=== PATIENT | male | born 1935 | race Caucasian/White ===

== ENCOUNTER 2016-08-16 15:06 | Emergency (ER) | payer OTHER ==
[~2016-08-16] VITALS: Ht 167.6 cm; Wt 91.2 kg
[~2016-08-16 15:06] MED LIST: ACETAMINOPHEN-1 EAC1 PO; ADULT LOW DOSE81 M1 PO; ADVAIR HFA120 INHALA IH; AMLODIPINE BESY10 MG PO; ASPIR 8181 MG PO; ASPIR-LOW81 MG PO; ASPIR-MOX IB T325 MG PO; ASPIRIN E.C.81 M1 PO; BENADRYL ALLERG25 MG PO; BENADRYL25 MG PO; BENTYL10 MG PO; CELEBREX100 MG PO; CELEBREX200 MG PO; CIPRO500 MG PO; COLACE100 MG PO; CORTISPORIN-TC10 M1 RIGHT EAR; COUMADIN1 MG PO; COUMADIN2 MG PO; COUMADIN2.5 MG PO; COUMADIN3 MG PO; Colace PO; DELTASONE20 M1 PO; DUONEB 2.5-0.5 M3 ML AEROSOL; DUONEB 2.5-0.5 M3 ML IH; FAMOTIDINE20 MG PO; FLAGYL500 MG PO; FLEXERIL10 MG PO; FLONASE16 G1 BOTH NARES; FLORASTOR250 MG PO; FLUTICASONE PRO16 GM BOTH NARES; Folvite PO; GLUCOPHAGE1000 MG PO; IMDUR30 MG PO; IPRATR-ALBUTEROL3 ML IH; ISOSORBIDE DINI30 MG PO; ISOSORBIDE MONO30 MG PO; JANTOVEN2 MG PO; JANTOVEN2.5 MG PO; K-DUR10 ME2 PO; K-DUR20 MEQ PO; KLOR-CON 1010 ME1 PO; KLOR-CON M1010 MEQ PO; KLOR-CON M2020 MEQ PO; LEVAQUIN750 MG PO; LEVOFLOXACIN250 MG PO; LEVOFLOXACIN750 MG PO; LIDODERM 5% P1 PATCH TD; LO-DOSE ASPIRIN81 M1 PO; LOPRESSOR25 MG PO; LORATADINE10 M2 PO; MECLIZINE HCL25 MG PO; METFORMIN HCL1000 MG PO; METOPROLOL SUCC50 MG PO; METRONIDAZOLE500 MG PO; MILK OF MAGNESI10 ML PO; MIRALAX17 GM PO; MYCOSTATIN 100,60 ML PO; NAPROSYN500 MG PO; NAPROXEN500 MG PO; NORVASC10 MG PO; Norvasc PO; Oyst-Cal D, Oscal W/ PO; PANTOPRAZOLE SO40 MG PO; PRAVACHOL20 MG PO; PRAVACHOL40 MG PO; PRAVASTATIN SOD40 MG PO; PREDNISONE10 MG PO; PREDNISONE20 MG PO; PRILOSEC20.6 MG PO; PROAIR HFA8.5 GM IH; PROTONIX40 MG PO; SENOKOT S,PE1 TABLET PO; SPIRIVA1 INHALATI IH; SYMBICORT60 INHALAT IH; TEKTURNA300 MG PO; THERAGRAN1 TABLET PO; THIAMINE,VITAM100 MG PO; TOPROL XL50 MG PO; TRAMADOL HCL50 MG PO; TYLENOL REGULA325 MG PO; TYLENOL WITH C1 EACH PO; Thiamine,Vitamin B1 PO; Tylenol Regular Stre PO; ULTRAM50 MG PO; WARFARIN SODIU2.5 MG PO; WARFARIN SODIUM3 MG PO; XARELTO15 MG PO; XARELTO20 MG PO; ZITHROMAX Z-PA250 MG PO; ZOLOFT100 M1 PO; Zocor PO; oxyCODONE PO
[2016-08-16 15:27] LABS: HEMATOCRIT 42.7 % (38.0-50.0); MCHC 33.7 G/DL (30.0-36.0); MEAN PLAT.VOLUME 9.3 uM^3 (9.0-12.4); PLATELET COUNT 179 K/uL (156-360); RBC DIS.WIDTH-CV 14.4 % (11.8-14.6); RBC DIS.WIDTH-SD 47.2 % (39-53); RED BLOOD COUNT 4.64 M/uL (4.00-5.50); WHITE BLOOD COUNT 6.5 K/uL (4.1-10.2)
[2016-08-16 15:38] LABS: CHLORIDE 104 mEq/L (99-109); POTASSIUM 3.8 mEq/L (3.7-5.4); SODIUM 141 mEq/L (136-147)
[2016-08-16 15:40] LABS: GLUCOSE 135 mg/dL (70-99)
[2016-08-16 15:41] LABS: ANION GAP 10 MEQ/L (2-14)
[2016-08-16 15:43] LABS: GFR ESTIMATE (CALCULATED) > 59 mL/min/
[2016-08-16 15:44] LABS: UREA NITROGEN (BUN) 12 mg/dL (9-23)
[2016-08-16 15:50] LABS: TROP-I INTERPRETATION NEGATIVE; TROPONIN-I 0.02 ng/mL (0.0-0.30)
[2016-08-16] MEDS ORDERED: ANAPROX DS550 M1 PO (17:00)
[2016-08-16 17:38] VITALS: BP 131/81
== END 2016-08-16 17:39 | disposition home or self-care (01) ==
LOC: EME → EDBD 15:06 → EME 17:39
DX: M25.512 Pain in left shoulder (principal); R07.9 Chest pain, unspecified; J44.9 Chronic obstructive pulmonary disease, unspecified; J45.909 Unspecified asthma, uncomplicated; I50.9 Heart failure, unspecified; E11.9 Type 2 diabetes mellitus without complications; E78.5 Hyperlipidemia, unspecified; I10 Essential (primary) hypertension; K21.9 Gastro-esophageal reflux disease without esophagitis; Z86.718 Personal history of other venous thrombosis and embolism; Z79.01 Long term (current) use of anticoagulants; Z99.81 Dependence on supplemental oxygen; Z87.891 Personal history of nicotine dependence
CPT/HCPCS: 71020; 80048; 84484; 85027; 93005; 99281; 99285

== ENCOUNTER 2016-10-23 10:24 | Inpatient (IN) | payer OTHER ==
[~2016-10-23] VITALS: Ht 170.2 cm; Wt 94.5 kg
[~2016-10-23 10:24] MED LIST changes: +ANAPROX DS550 M1 PO
[2016-10-23 11:35] LABS: BASOPHIL COUNT 0.1 K/uL (0-0.1); EOSINOPHIL (%) 3.4 % (0-5); EOSINOPHIL COUNT 0.2 K/uL (0-0.3); IMMATURE GRANULOCYTE (%) 0.3 % (0.0-0.7); INSTRUMENT ABS NEUTROPHIL CT 4.4 K/uL; LYMPHOCYTE COUNT 1.4 K/uL (1.0-2.8); MCH 29.9 PG (29.0-34.0); MCHC 32.3 G/DL (30.0-36.0); MCV 92.3 FL (86-99); MEAN PLAT.VOLUME 9.6 uM^3 (9.0-12.4); MONOCYTE (%) 6.5 % (3-12); MONOCYTE COUNT 0.4 K/uL (0-0.8); NEUTROPHIL (%) 67.1 % (45-76); NEUTROPHIL COUNT 4.4 K/uL (1.8-6.4); PLATELET COUNT 228 K/uL (156-360); RBC DIS.WIDTH-SD 47.6 % (39-53); RED BLOOD COUNT 5.09 M/uL (4.00-5.50); WHITE BLOOD COUNT 6.5 K/uL (4.1-10.2)
[2016-10-23 11:45] LABS: CHLORIDE 100 mEq/L (99-109); SODIUM 138 mEq/L (136-147)
[2016-10-23 11:47] LABS: GLUCOSE 131 mg/dL (70-99)
[2016-10-23 11:49] LABS: ANION GAP 12 MEQ/L (2-14)
[2016-10-23 11:51] LABS: GFR ESTIMATE (CALCULATED) > 59 mL/min/
[2016-10-23 11:52] LABS: INTER. NORMALIZED RATIO 1.1; PROTHROMBIN TIME 10.7 (9.2-11.2); PTT 26.5 (25-32); UREA NITROGEN (BUN) 12 mg/dL (9-23)
[2016-10-23 11:56] LABS: TROP-I INTERPRETATION NEGATIVE; TROPONIN-I < 0.01 ng/mL (0.0-0.30)
[2016-10-23 12:32] LABS: ADD MIUA? YES; BILIRUBIN NEGATIVE; BLOOD SMALL; COLOR YELLOW ((YELLOW)); GLUCOSE (STRIP) NEGATIVE; KETONES NEGATIVE; LEUKOCYTES NEGATIVE; NITRITE NEGATIVE; PROTEIN (STRIP) 30; SPECIFIC GRAVITY 1.015 (1.000-1.030); UROBILINOGEN 0.2 MG/DL (0.2-1.0)
[2016-10-23 12:48] LABS: BACTERIA RARE /HPF; CALCIUM OXALATE CRYSTALS 2+ /HPF; EPITHELIAL CELLS RARE /HPF; HYALINE CASTS 0-5 /LPF; MUCUS TRACE /LPF; UCUL ADDED? NO; WHITE BLOOD CELLS 0-5 /HPF (0-5)
[2016-10-23] MEDS ORDERED: PROAIR HFA8.5 GM IH (16:11)
[2016-10-23] MEDS ORDERED: LOW DOSE ASPIRI81 M1 PO (16:11)
[2016-10-23] MEDS ORDERED: PROVENTIL,2.5 MG/3 M IH (16:12)
[2016-10-23] MEDS ORDERED: ULTRAM50 MG PO (16:13)
[2016-10-23 20:49] LABS: TROP-I INTERPRETATION NEGATIVE; TROPONIN-I < 0.01 ng/mL (0.0-0.30)
[2016-10-23 22:32] VITALS: BP 144/84
[2016-10-24 03:47] VITALS: BP 190/96
[2016-10-24 06:25] LABS: TROP-I INTERPRETATION NEGATIVE; TROPONIN-I < 0.01 ng/mL (0.0-0.30)
[2016-10-24 08:04] LABS: POINT-OF-CARE METER ID UU14162513
[2016-10-24 08:15] VITALS: BP 140/72
[2016-10-24 12:01] VITALS: BP 148/84
[2016-10-24 12:43] LABS: POINT-OF-CARE METER ID UU14162513
[2016-10-24 16:00] VITALS: BP 151/87
[2016-10-24 19:09] VITALS: BP 136/73
[2016-10-24 23:54] VITALS: BP 159/79
[2016-10-25 04:19] VITALS: BP 156/80
[2016-10-25 07:47] VITALS: BP 169/79
[2016-10-25 12:27] VITALS: BP 132/65
[2016-10-25 16:15] VITALS: BP 145/76
[2016-10-25 20:23] VITALS: BP 158/82
[2016-10-25 23:59] VITALS: BP 157/77
[2016-10-26 05:01] VITALS: BP 158/74
[2016-10-26 06:48] LABS: ALKALINE PHOSPHATASE 44 IU/L (3-129); ANION GAP 5 MEQ/L (2-14); CHLORIDE 104 MEQ/L (99-109); GFR ESTIMATE (CALCULATED) > 59 mL/min/; POTASSIUM 3.9 MEQ/L (3.7-5.4); SAMPLE HEMOLYSIS CHECK 0; SAMPLE ICTERIC CHECK 0; SAMPLE LIPEMIA CHECK 0; SODIUM 142 MEQ/L (136-147); TOTAL BILIRUBIN 0.6 MG/DL (0.0-1.0); UREA NITROGEN (BUN) 18 mg/dL (9-23)
[2016-10-26 06:52] LABS: GLUCOSE 91 mg/dL (70-99)
[2016-10-26 06:57] LABS: BASOPHIL COUNT 0.1 K/uL (0-0.1); EOSINOPHIL (%) 0.4 % (0-5); EOSINOPHIL COUNT 0.1 K/uL (0-0.3); HEMATOCRIT 40.5 % (38.0-50.0); IMMATURE GRANULOCYTE (%) 0.4 % (0.0-0.7); INSTRUMENT ABS NEUTROPHIL CT 7.5 K/uL; LYMPHOCYTE COUNT 2.8 K/uL (1.0-2.8); MCH 30.2 PG (29.0-34.0); MCHC 32.6 G/DL (30.0-36.0); MCV 92.7 FL (86-99); MEAN PLAT.VOLUME 10.2 uM^3 (9.0-12.4); MONOCYTE (%) 8.1 % (3-12); MONOCYTE COUNT 0.9 K/uL (0-0.8); NEUTROPHIL (%) 66.4 % (45-76); NEUTROPHIL COUNT 7.5 K/uL (1.8-6.4); PLATELET COUNT 195 K/uL (156-360); RBC DIS.WIDTH-SD 47.8 % (39-53); RED BLOOD COUNT 4.37 M/uL (4.00-5.50)
[2016-10-26 07:05] LABS: WHITE BLOOD COUNT 11.3 K/uL (4.1-10.2)
[2016-10-26 07:39] VITALS: BP 154/82
[2016-10-26 10:11] LABS: C DIFF TOXIN POSITIVE (NEGATIVE)
[2016-10-26 10:12] LABS: PROBE CHECK PASS
[2016-10-26 11:40] VITALS: BP 145/84
[2016-10-26 16:16] VITALS: BP 142/86
[2016-10-26 20:40] VITALS: BP 194/98
[2016-10-27 00:33] VITALS: BP 179/91
[2016-10-27 04:40] VITALS: BP 174/82
[2016-10-27 07:42] VITALS: BP 174/98
[2016-10-27 10:55] VITALS: BP 142/92
[2016-10-27] MEDS ORDERED: VANCOCIN HCL125 MG PO (14:01)
[2016-10-27] MEDS ORDERED: PREDNISONE10 MG PO (14:02)
[2016-10-27 16:35] VITALS: BP 178/104
== END 2016-10-27 17:40 | DRG 191 ==
LOC: EME → EDBD 10:24 → 5WEST 17:03 → EDOF 17:03 → 5WEST 22:17 → 3EAST 10-24 10:06 → 5WEST 10-24 10:06 → 3EAST 10-24 18:09
PROVIDERS: Emergency Medicine; Internal Medicine; Nurse Practitioner Adult Health; Pediatrics
DX: J44.1 Chronic obstructive pulmonary disease with (acute) exacerbation (principal); A04.7 Enterocolitis due to Clostridium difficile; I10 Essential (primary) hypertension; E78.5 Hyperlipidemia, unspecified; Z87.891 Personal history of nicotine dependence; Z99.81 Dependence on supplemental oxygen; R53.1 Weakness; J92.9 Pleural plaque without asbestos; R31.9 Hematuria, unspecified; Z86.718 Personal history of other venous thrombosis and embolism; R19.7 Diarrhea, unspecified; G89.29 Other chronic pain; M54.9 Dorsalgia, unspecified
CPT/HCPCS: 71010; 71020; 74177; 80048; 80053; 81003; 82948; 83880; 84484; 85025; 85610; 85730; 87040; 87493; 93005; 94640; 94640 76; 94760; 94799; 97530 GO; 99202; 99281; 99285; G0378; G8978 GP CJ; G8979 GP CI; G8987 GO CH; G8988 GO CH; J0456; J0696; J1650; J2405; J2930; J7030; J7050; J7512

== ENCOUNTER 2016-12-26 00:43 | Inpatient (IN) | payer OTHER ==
[~2016-12-26] VITALS: Ht 170.2 cm; Wt 90.5 kg
[~2016-12-26 00:43] MED LIST changes: +LOW DOSE ASPIRI81 M1 PO; +PROVENTIL,2.5 MG/3 M IH; +VANCOCIN HCL125 MG PO
[2016-12-26 01:08] LABS: HEMATOCRIT 44.5 % (38.0-50.0); MCH 30.7 PG (29.0-34.0); MCHC 32.8 G/DL (30.0-36.0); MCV 93.7 FL (86-99); MEAN PLAT.VOLUME 9.9 uM^3 (9.0-12.4); PLATELET COUNT 136 K/uL (156-360); RBC DIS.WIDTH-CV 14.6 % (11.8-14.6); RBC DIS.WIDTH-SD 50.9 % (39-53); RED BLOOD COUNT 4.75 M/uL (4.00-5.50); WHITE BLOOD COUNT 13.4 K/uL (4.1-10.2)
[2016-12-26 01:21] LABS: CHLORIDE 106 mEq/L (99-109); POTASSIUM 4.3 mEq/L (3.7-5.4); SODIUM 144 mEq/L (136-147)
[2016-12-26 01:24] LABS: ANION GAP 14 MEQ/L (2-14)
[2016-12-26 01:26] LABS: GFR ESTIMATE (CALCULATED) 41 mL/min/
[2016-12-26 01:27] LABS: UREA NITROGEN (BUN) 23 mg/dL (9-23)
[2016-12-26 01:29] LABS: GLUCOSE 229 mg/dL (70-99)
[2016-12-26 01:33] LABS: TROP-I INTERPRETATION NEGATIVE; TROPONIN-I 0.06 ng/mL (0.0-0.30)
[2016-12-26 02:56] LABS: INTER. NORMALIZED RATIO 1.2; PTT 28.3 (25-32)
[2016-12-26 06:25] VITALS: BP 132/77
[2016-12-26 07:08] LABS: POINT-OF-CARE METER ID UU14149397
[2016-12-26 07:44] VITALS: BP 137/78
[2016-12-26 09:49] LABS: Estimated Average Glucose 148 mg/dL (70-123); HEMOGLOBIN A1c (GLYCOHEMOGLOB) 6.8 % HGB (Below 5.7)
[2016-12-26 09:51] LABS: TROP-I INTERPRETATION NEGATIVE; TROPONIN-I 0.03 ng/mL (0.0-0.30)
[2016-12-26 11:26] LABS: POINT-OF-CARE METER ID UU14149397
[2016-12-26 11:41] VITALS: BP 194/81
[2016-12-26 15:39] LABS: TROP-I INTERPRETATION NEGATIVE; TROPONIN-I 0.02 ng/mL (0.0-0.30)
[2016-12-26 16:25] LABS: POINT-OF-CARE METER ID UU14149397
[2016-12-26 16:34] VITALS: BP 152/75
[2016-12-26 19:39] VITALS: BP 130/61
[2016-12-26 23:54] VITALS: BP 143/71
[2016-12-27 03:58] VITALS: BP 115/63
[2016-12-27 06:45] LABS: INTER. NORMALIZED RATIO 1.1; PROTHROMBIN TIME 11.6 (9.2-11.2)
[2016-12-27 06:47] LABS: PTT 83.2 (25-32)
[2016-12-27 06:50] LABS: HEMATOCRIT 39.6 % (38.0-50.0); MCH 31.3 PG (29.0-34.0); MCHC 32.6 G/DL (30.0-36.0); MCV 96.1 FL (86-99); MEAN PLAT.VOLUME 10.5 uM^3 (9.0-12.4); PLATELET COUNT 151 K/uL (156-360); RBC DIS.WIDTH-CV 14.9 % (11.8-14.6); RED BLOOD COUNT 4.12 M/uL (4.00-5.50); WHITE BLOOD COUNT 12.9 K/uL (4.1-10.2)
[2016-12-27 07:49] VITALS: BP 135/74
[2016-12-27 10:03] LABS: ANION GAP 9 MEQ/L (2-14); CHLORIDE 107 MEQ/L (99-109); GFR ESTIMATE (CALCULATED) > 59 mL/min/; GLUCOSE 123 mg/dL (70-99); POTASSIUM 4.7 MEQ/L (3.7-5.4); SAMPLE HEMOLYSIS CHECK 0; SAMPLE ICTERIC CHECK 0; SAMPLE LIPEMIA CHECK 0; SODIUM 147 MEQ/L (136-147); UREA NITROGEN (BUN) 19 mg/dL (9-23)
[2016-12-27 10:24] LABS: HEMATOCRIT 40.2 % (38.0-50.0); MCH 31.2 PG (29.0-34.0); MCHC 32.1 G/DL (30.0-36.0); MCV 97.1 FL (86-99); MEAN PLAT.VOLUME 10.6 uM^3 (9.0-12.4); PLATELET COUNT 152 K/uL (156-360); RBC DIS.WIDTH-CV 14.9 % (11.8-14.6); RBC DIS.WIDTH-SD 53.4 % (39-53); RED BLOOD COUNT 4.14 M/uL (4.00-5.50); WHITE BLOOD COUNT 11.4 K/uL (4.1-10.2)
[2016-12-27 11:27] VITALS: BP 121/55
[2016-12-27 15:02] VITALS: BP 116/64
[2016-12-27 19:28] LABS: ADD MIUA? YES; BILIRUBIN NEGATIVE; BLOOD MODERATE; COLOR YELLOW ((YELLOW)); GLUCOSE (STRIP) NEGATIVE; KETONES NEGATIVE; LEUKOCYTES NEGATIVE; NITRITE NEGATIVE; PROTEIN (STRIP) NEGATIVE; SPECIFIC GRAVITY 1.018 (1.000-1.030)
[2016-12-27 19:29] VITALS: BP 137/62
[2016-12-27 19:46] LABS: BACTERIA NONE SEEN /HPF; EPITHELIAL CELLS RARE /HPF; MUCUS TRACE /LPF; RED BLOOD CELLS 0-5 /HPF (0-5); UNCLASSIFIED CRYSTALS 1+ /HPF; WHITE BLOOD CELLS 0-5 /HPF (0-5)
[2016-12-27 21:01] LABS: POINT-OF-CARE METER ID UU14188577
[2016-12-27 23:27] VITALS: BP 129/62
[2016-12-28 03:50] VITALS: BP 130/60
[2016-12-28 06:23] LABS: POINT-OF-CARE METER ID UU14188577
[2016-12-28 07:21] LABS: INTER. NORMALIZED RATIO 1.2; PROTHROMBIN TIME 12.2 (9.2-11.2); PTT 70.9 (25-32)
[2016-12-28 09:37] VITALS: BP 106/53
[2016-12-28 12:00] VITALS: BP 113/66
[2016-12-28 12:19] LABS: POINT-OF-CARE METER ID UU14188577
[2016-12-28 15:37] LABS: INTER. NORMALIZED RATIO 1.2; PROTHROMBIN TIME 12.3 (9.2-11.2)
[2016-12-28 15:40] LABS: PTT 39.6 (25-32)
[2016-12-28 16:09] VITALS: BP 116/58
[2016-12-28 20:00] VITALS: BP 116/55
[2016-12-28 21:14] LABS: INTER. NORMALIZED RATIO 1.3; PROTHROMBIN TIME 13.3 (9.2-11.2)
[2016-12-28 21:17] LABS: PTT 60.5 (25-32)
[2016-12-29] VITALS (8 sets, daily range): BP systolic 127–164; BP diastolic 65–83
[2016-12-29 04:08] LABS: HEMATOCRIT 40.4 % (38.0-50.0); MCH 30.2 PG (29.0-34.0); MCHC 31.9 G/DL (30.0-36.0); MCV 94.6 FL (86-99); MEAN PLAT.VOLUME 10.1 uM^3 (9.0-12.4); PLATELET COUNT 190 K/uL (156-360); RBC DIS.WIDTH-CV 14.7 % (11.8-14.6); RBC DIS.WIDTH-SD 51.5 % (39-53); RED BLOOD COUNT 4.27 M/uL (4.00-5.50); WHITE BLOOD COUNT 9.4 K/uL (4.1-10.2)
[2016-12-29 04:33] LABS: CHLORIDE 105 mEq/L (99-109); POTASSIUM 4.9 mEq/L (3.7-5.4); SODIUM 143 mEq/L (136-147)
[2016-12-29 04:36] LABS: ANION GAP 8 MEQ/L (2-14)
[2016-12-29 04:37] LABS: INTER. NORMALIZED RATIO 1.3; PROTHROMBIN TIME 13.2 (9.2-11.2); PTT 54.9 (25-32)
[2016-12-29 04:38] LABS: GFR ESTIMATE (CALCULATED) > 59 mL/min/
[2016-12-29 04:39] LABS: UREA NITROGEN (BUN) 16 mg/dL (9-23)
[2016-12-29 04:41] LABS: GLUCOSE 214 mg/dL (70-99)
[2016-12-30 03:16] VITALS: BP 134/80
[2016-12-30 07:20] LABS: INTER. NORMALIZED RATIO 1.9
[2016-12-30 07:21] LABS: PROTHROMBIN TIME 19.4 (9.2-11.2); PTT 95.9 (25-32)
[2016-12-30 08:24] VITALS: BP 162/90
[2016-12-30 08:41] LABS: HEMATOCRIT 36.7 % (38.0-50.0); MCH 30.7 PG (29.0-34.0); MCHC 32.2 G/DL (30.0-36.0); MCV 95.6 FL (86-99); MEAN PLAT.VOLUME 10.6 uM^3 (9.0-12.4); PLATELET COUNT 222 K/uL (156-360); RBC DIS.WIDTH-CV 14.6 % (11.8-14.6); RBC DIS.WIDTH-SD 51.7 % (39-53); RED BLOOD COUNT 3.84 M/uL (4.00-5.50)
[2016-12-30 09:01] LABS: ANION GAP 8 MEQ/L (2-14); CHLORIDE 102 MEQ/L (99-109); GFR ESTIMATE (CALCULATED) > 59 mL/min/; POTASSIUM 4.3 MEQ/L (3.7-5.4); SAMPLE HEMOLYSIS CHECK 0; SAMPLE ICTERIC CHECK 0; SAMPLE LIPEMIA CHECK 0; SODIUM 143 MEQ/L (136-147); UREA NITROGEN (BUN) 20 mg/dL (9-23)
[2016-12-30 09:05] LABS: GLUCOSE 120 mg/dL (70-99)
[2016-12-30 13:03] VITALS: BP 141/83
[2016-12-30 16:30] VITALS: BP 134/65
[2016-12-30 19:22] VITALS: BP 101/59
[2016-12-30 23:21] VITALS: BP 111/63
[2016-12-31 07:33] LABS: INTER. NORMALIZED RATIO 2.6; PROTHROMBIN TIME 27.5 (9.2-11.2)
[2016-12-31 07:50] VITALS: BP 137/90
[2016-12-31 12:02] LABS: POINT-OF-CARE METER ID UU14162508
[2016-12-31] MEDS ORDERED: ADVAIR HFA120 INHALA IH (12:41)
[2016-12-31] MEDS ORDERED: FUROSEMIDE20 MG PO (12:41)
[2016-12-31] MEDS ORDERED: PREDNISONE10 MG PO (12:46)
[2016-12-31] MEDS ORDERED: TEST STRIPS MC (12:52)
[2016-12-31] MEDS ORDERED: COUMADIN1 MG PO (13:31)
[2016-12-31 17:01] LABS: POINT-OF-CARE METER ID UU14162508
[2016-12-31 17:21] VITALS: BP 125/71
== END 2017-01-01 00:32 | disposition home or self-care (01) | DRG 176 ==
LOC: EME 00:43 → 2EAST 03:49 → 3EAST 03:49 → EDOF 03:49 → 3EAST 05:58 → 2EAST 12-29 04:53
PROVIDERS: Emergency Medicine; Internal Medicine; Pediatrics; Physician Assistant
DX: I26.99 Other pulmonary embolism without acute cor pulmonale (principal); I82.4Z1 Acute embolism and thrombosis of unspecified deep veins of right distal lower extremity; J98.01 Acute bronchospasm; J44.9 Chronic obstructive pulmonary disease, unspecified; E11.8 Type 2 diabetes mellitus with unspecified complications; M79.89 Other specified soft tissue disorders; E78.5 Hyperlipidemia, unspecified; M48.00 Spinal stenosis, site unspecified; K59.00 Constipation, unspecified; Z99.81 Dependence on supplemental oxygen; Z79.01 Long term (current) use of anticoagulants; Z87.891 Personal history of nicotine dependence; Z86.718 Personal history of other venous thrombosis and embolism; Z86.711 Personal history of pulmonary embolism
CPT/HCPCS: 71020; 78582; 80048; 81003; 82948; 83036; 83880; 84484; 85027; 85610; 85730; 87040; 87086; 93005; 93306; 93971; 94010; 94640; 94640 76; 94799; 97530 GP; 99202; 99281; 99285; A9540; A9567; J1650; J1815; J2405; J7030; J7512

== ENCOUNTER 2017-01-28 14:46 | Emergency (ER) | payer OTHER ==
[~2017-01-28] VITALS: Ht 170.2 cm; Wt 88.7 kg
[~2017-01-28 14:46] MED LIST changes: +FUROSEMIDE20 MG PO; +TEST STRIPS MC
[2017-01-28 16:48] LABS: HEMATOCRIT 40.2 % (38.0-50.0); MCH 30.3 PG (29.0-34.0); MCHC 32.1 G/DL (30.0-36.0); MCV 94.4 FL (86-99); PLATELET COUNT 228 K/uL (156-360); RBC DIS.WIDTH-CV 14.7 % (11.8-14.6); RBC DIS.WIDTH-SD 51.5 % (39-53); RED BLOOD COUNT 4.26 M/uL (4.00-5.50); WHITE BLOOD COUNT 6.2 K/uL (4.1-10.2)
[2017-01-28 16:58] LABS: INTER. NORMALIZED RATIO 1.8
[2017-01-28 17:01] LABS: PROTHROMBIN TIME 18.3 (9.2-11.2); PTT 32.4 (25-32)
[2017-01-28 18:11] VITALS: BP 156/86
== END 2017-01-28 18:12 | disposition home or self-care (01) ==
LOC: EME 14:46
PROVIDERS: Emergency Medicine
DX: I82.401 Acute embolism and thrombosis of unspecified deep veins of right lower extremity (principal); Z79.01 Long term (current) use of anticoagulants; I11.0 Hypertensive heart disease with heart failure; I50.9 Heart failure, unspecified; J44.9 Chronic obstructive pulmonary disease, unspecified; K21.9 Gastro-esophageal reflux disease without esophagitis; E78.5 Hyperlipidemia, unspecified; E11.9 Type 2 diabetes mellitus without complications; Z87.891 Personal history of nicotine dependence
CPT/HCPCS: 85027; 85610; 85730; 93971; 99281; 99283

== ENCOUNTER 2017-02-14 10:20 | Observation (INO) | payer OTHER ==
[~2017-02-14] VITALS: Ht 167.6 cm; Wt 90.7 kg
[2017-02-14 11:01] LABS: HEMATOCRIT 40.6 % (38.0-50.0); MCH 30.4 PG (29.0-34.0); MCV 94.9 FL (86-99); MEAN PLAT.VOLUME 9.4 uM^3 (9.0-12.4); PLATELET COUNT 190 K/uL (156-360); RBC DIS.WIDTH-SD 52.3 % (39-53); RED BLOOD COUNT 4.28 M/uL (4.00-5.50); WHITE BLOOD COUNT 6.7 K/uL (4.1-10.2)
[2017-02-14 11:23] LABS: CHLORIDE 104 mEq/L (99-109); POTASSIUM 3.7 mEq/L (3.7-5.4); SODIUM 141 mEq/L (136-147)
[2017-02-14 11:24] LABS: TROP-I INTERPRETATION NEGATIVE; TROPONIN-I 0.02 ng/mL (0.0-0.30)
[2017-02-14 11:25] LABS: GLUCOSE 131 mg/dL (70-99)
[2017-02-14 11:27] LABS: ANION GAP 8 MEQ/L (2-14)
[2017-02-14 11:29] LABS: GFR ESTIMATE (CALCULATED) > 59 mL/min/
[2017-02-14 11:30] LABS: UREA NITROGEN (BUN) 11 mg/dL (9-23)
[2017-02-14 11:58] LABS: PROTHROMBIN TIME 34.9 SEC (10.2-12.9)
[2017-02-14] MEDS ORDERED: WARFARIN SODIUM1 MG PO (16:05)
[2017-02-14 21:15] LABS: TROP-I INTERPRETATION NEGATIVE; TROPONIN-I 0.01 ng/mL (0.0-0.30)
[2017-02-14 21:26] LABS: HDL CHOLESTEROL 55 MG/DL (Desirable>=40); LDL CHOLESTEROL 84 mg/dL (Desirable<100); NON-HDL CHOLESTEROL 105 mg/dL (Desirable<160); TOTAL CHOLESTEROL 160 mg/dL (Desirable<200); TRIGLYCERIDES 107 MG/DL (Normal: <150)
[2017-02-14 21:35] VITALS: BP 170/90
[2017-02-14 21:38] LABS: POINT-OF-CARE METER ID UU13113700
[2017-02-14 21:49] LABS: ADD MIUA? YES; BILIRUBIN NEGATIVE; BLOOD MODERATE; COLOR STRAW ((YELLOW)); GLUCOSE (STRIP) NEGATIVE; KETONES NEGATIVE; LEUKOCYTES NEGATIVE; NITRITE NEGATIVE; PROTEIN (STRIP) NEGATIVE; SPECIFIC GRAVITY 1.018 (1.000-1.030); UROBILINOGEN 0.2 MG/DL (0.2-1.0)
[2017-02-14 21:55] LABS: BACTERIA NONE SEEN /HPF; EPITHELIAL CELLS NONE SEEN /HPF; MUCUS TRACE /LPF; RED BLOOD CELLS 30-40 /HPF (0-5); UCUL ADDED? NO; WHITE BLOOD CELLS 0-5 /HPF (0-5)
[2017-02-14 22:26] LABS: AMPHETAMINES QUANT VALUE 0 NG/ML; BARBITUATES QUANT VALUE 0 NG/ML; BENZODIAZEPINES QUANT VALUE 0 NG/ML; BENZODIAZEPINES, URINE SCREEN Negative (200 ng/mL); MARIJUANA QUANT VALUE 0 NG/ML; OPIATES QUANTITATIVE VALUE 0 NG/ML; PHENCYCLIDINE QUANT VALUE 0 NG/ML
[2017-02-15 00:33] VITALS: BP 178/89
[2017-02-15 04:33] VITALS: BP 179/84
[2017-02-15 06:14] LABS: INTER. NORMALIZED RATIO 2.8; PROTHROMBIN TIME 32.1 SEC (10.2-12.9)
[2017-02-15 07:46] LABS: Estimated Average Glucose 143 mg/dL (70-123); HEMOGLOBIN A1c (GLYCOHEMOGLOB) 6.6 % HGB (Below 5.7)
[2017-02-15 07:50] LABS: POINT-OF-CARE METER ID UU13113700
[2017-02-15 07:58] VITALS: BP 172/96
[2017-02-15] MEDS ORDERED: THERAGRAN1 TABLET PO (10:29)
[2017-02-15] MEDS ORDERED: AZITHROMYCIN500 M1 PO (10:29)
[2017-02-15] MEDS ORDERED: PREDNISONE20 MG PO (10:29)
[2017-02-15 11:33] LABS: TROP-I INTERPRETATION NEGATIVE; TROPONIN-I 0.01 ng/mL (0.0-0.30)
[2017-02-15 11:46] VITALS: BP 148/67
[2017-02-15 13:19] LABS: POINT-OF-CARE METER ID UU13113831
[2017-02-15] MEDS ORDERED: TEST STRIPS MC (13:46)
[2017-02-15] MEDS ORDERED: BLOOD LANCETS1 EACH MC (13:46)
== END 2017-02-15 17:57 | disposition home or self-care (01) ==
LOC: EME 10:20 → 5WEST 19:29 → EDOF 19:29 → 5WEST 21:00
PROVIDERS: Emergency Medicine; Hospitalist; Physician Assistant Medical
DX: R07.89 Other chest pain (principal); J44.1 Chronic obstructive pulmonary disease with (acute) exacerbation; I27.82 Chronic pulmonary embolism; I82.5Z1 Chronic embolism and thrombosis of unspecified deep veins of right distal lower extremity; Z79.01 Long term (current) use of anticoagulants; I25.10 Atherosclerotic heart disease of native coronary artery without angina pectoris; M48.00 Spinal stenosis, site unspecified; E11.9 Type 2 diabetes mellitus without complications; I10 Essential (primary) hypertension; E66.9 Obesity, unspecified; Z68.32 Body mass index [BMI] 32.0-32.9, adult; Z55.0 Illiteracy and low-level literacy; E78.5 Hyperlipidemia, unspecified; Z87.891 Personal history of nicotine dependence; Z87.898 Personal history of other specified conditions; Z79.4 Long term (current) use of insulin; Z79.82 Long term (current) use of aspirin
CPT/HCPCS: 71020; 71275; 80048; 80061; 80306 90; 81003; 82948; 83036; 83735; 84484; 85027; 85379; 85610; 85730; 93005; 94640; 94640 76; 94799; 99202; 99281; 99285; G0378; G8978 GP CJ; G8979 GP CI; G8987 GO CJ; G8988 CI; J0696; J7050; J7512

== ENCOUNTER 2018-02-13 14:08 | Inpatient (IN) | payer OTHER ==
[~2018-02-13] VITALS: Ht 170.2 cm; Wt 94.3 kg
[~2018-02-13 14:08] MED LIST changes: +AZITHROMYCIN500 M1 PO; +BLOOD LANCETS1 EACH MC; +WARFARIN SODIUM1 MG PO
[2018-02-13 15:02] LABS: INTER. NORMALIZED RATIO 1.6
[2018-02-13 15:48] LABS: HEMOGLOBIN 15.1 G/DL (12.5-16.6); MCH 30.9 PG (29.0-34.0); MCHC 33.6 G/DL (30.0-36.0); PLATELET COUNT 185 K/uL (156-360); RBC DIS.WIDTH-CV 14.6 % (11.8-14.6); RBC DIS.WIDTH-SD 49.9 % (39-53); RED BLOOD COUNT 4.89 M/uL (4.00-5.50)
[2018-02-13 15:53] LABS: CHLORIDE 103 mEq/L (99-109); POTASSIUM 3.8 mEq/L (3.7-5.4); SODIUM 142 mEq/L (136-147)
[2018-02-13 15:55] LABS: GLUCOSE 129 mg/dL (70-99)
[2018-02-13 15:59] LABS: CREATININE 1.3 mg/dL (0.6-1.3); GFR ESTIMATE (CALCULATED) 56 mL/min/ (58.99-99999)
[2018-02-13 16:00] LABS: UREA NITROGEN (BUN) 14 mg/dL (9-23)
[2018-02-13 16:03] LABS: PTT 34.2 SEC (25-37)
[2018-02-13 16:48] LABS: APPEARANCE CLEAR ((CLEAR)); BILIRUBIN NEGATIVE; BLOOD MODERATE; COLOR YELLOW ((YELLOW)); GLUCOSE (STRIP) NEGATIVE; KETONES NEGATIVE; LEUKOCYTES NEGATIVE; NITRITE NEGATIVE; PROTEIN (STRIP) NEGATIVE; SPECIFIC GRAVITY 1.009 (1.000-1.030); UROBILINOGEN 0.2 MG/DL (0.2-1.0)
[2018-02-13 16:55] LABS: BACTERIA NONE SEEN /HPF; EPITHELIAL CELLS NONE SEEN /HPF; HYALINE CASTS 0-5 /LPF; MUCUS NONE SEEN /LPF; RED BLOOD CELLS 0-5 /HPF (0-5); WHITE BLOOD CELLS 0-5 /HPF (0-5)
[2018-02-13 18:10] VITALS: BP 152/72
[2018-02-14] VITALS: BP 186/86
[2018-02-14 06:17] VITALS: BP 161/76
[2018-02-14 07:40] VITALS: BP 136/78
[2018-02-14 12:12] VITALS: BP 146/68
[2018-02-14 19:30] VITALS: BP 144/76
[2018-02-15 00:01] VITALS: BP 130/76
[2018-02-15 03:37] VITALS: BP 167/74
[2018-02-15 06:09] LABS: HEMATOCRIT 43.8 % (38.0-50.0); HEMOGLOBIN 14.2 G/DL (12.5-16.6); MCH 30.4 PG (29.0-34.0); MCHC 32.4 G/DL (30.0-36.0); MCV 93.8 FL (86-99); PLATELET COUNT 157 K/uL (156-360); RBC DIS.WIDTH-CV 14.9 % (11.8-14.6); RBC DIS.WIDTH-SD 51.5 % (39-53); RED BLOOD COUNT 4.67 M/uL (4.00-5.50); WHITE BLOOD COUNT 7.2 K/uL (4.1-10.2)
[2018-02-15 06:42] LABS: CHLORIDE 104 MEQ/L (99-109); GFR ESTIMATE (CALCULATED) > 59 mL/min/ (58.99-99999); GLUCOSE 105 mg/dL (70-99); POTASSIUM 3.9 MEQ/L (3.7-5.4); SODIUM 143 MEQ/L (136-147); UREA NITROGEN (BUN) 12 mg/dL (9-23)
[2018-02-15 07:51] VITALS: BP 153/72
[2018-02-15 12:07] VITALS: BP 112/59
[2018-02-15 16:20] VITALS: BP 151/70
[2018-02-16] VITALS: BP 142/71
[2018-02-16 04:00] VITALS: BP 145/71
[2018-02-16 07:18] VITALS: BP 147/83
[2018-02-16 11:01] VITALS: BP 153/70
[2018-02-17] VITALS: BP 155/80
[2018-02-17 04:00] VITALS: BP 160/76
[2018-02-17 07:27] VITALS: BP 162/73
[2018-02-17] MEDS ORDERED: PREDNISONE10 MG PO (09:32)
[2018-02-17 16:18] VITALS: BP 159/72
[2018-02-17 19:26] VITALS: BP 126/71
[2018-02-18 00:22] VITALS: BP 145/69
[2018-02-18 03:56] VITALS: BP 164/71
[2018-02-18 06:30] LABS: HEMATOCRIT 45.7 % (38.0-50.0); MCH 30.5 PG (29.0-34.0); MCHC 32.8 G/DL (30.0-36.0); MCV 93.1 FL (86-99); PLATELET COUNT 193 K/uL (156-360); RBC DIS.WIDTH-CV 14.9 % (11.8-14.6); RBC DIS.WIDTH-SD 51.3 % (39-53); RED BLOOD COUNT 4.91 M/uL (4.00-5.50)
[2018-02-18 07:56] VITALS: BP 168/83
[2018-02-18 16:18] VITALS: BP 137/66
[2018-02-18 23:20] VITALS: BP 140/66
[2018-02-19 07:20] VITALS: BP 162/73
[2018-02-19 08:38] LABS: HEMATOCRIT 48.8 % (38.0-50.0); HEMOGLOBIN 15.8 G/DL (12.5-16.6); MCH 30.3 PG (29.0-34.0); MCHC 32.4 G/DL (30.0-36.0); MCV 93.5 FL (86-99); PLATELET COUNT 223 K/uL (156-360); RBC DIS.WIDTH-CV 15.2 % (11.8-14.6); RBC DIS.WIDTH-SD 52.3 % (39-53); RED BLOOD COUNT 5.22 M/uL (4.00-5.50)
[2018-02-19 09:11] LABS: ALBUMIN 3.8 G/DL (3.2-4.8); ALKALINE PHOSPHATASE 68 IU/L (3-129); ALT (GPT) 18 IU/L (3-49); AST (GOT) 14 IU/L (2-34); CHLORIDE 98 MEQ/L (99-109); CREATININE 1.2 MG/DL (0.6-1.3); GFR ESTIMATE (CALCULATED) > 59 mL/min/ (58.99-99999); GLUCOSE 205 mg/dL (70-99); POTASSIUM 4.5 MEQ/L (3.7-5.4); SODIUM 140 MEQ/L (136-147); TOTAL BILIRUBIN 0.7 MG/DL (0.0-1.0)
[2018-02-19 09:14] LABS: UREA NITROGEN (BUN) 30 mg/dL (9-23)
[2018-02-19 15:39] VITALS: BP 105/57
[2018-02-19 23:52] VITALS: BP 159/80
[2018-02-20 06:03] LABS: BASOPHIL (%) 0.1 % (0-1); EOSINOPHIL (%) 0 % (0-5); HEMATOCRIT 44.7 % (38.0-50.0); HEMOGLOBIN 14.6 G/DL (12.5-16.6); IMMATURE GRANULOCYTE (%) 1.1 % (0.0-0.7); LYMPHOCYTE (%) 5.6 % (15-42); LYMPHOCYTE COUNT 0.8 K/uL (1.0-2.8); MCH 30.7 PG (29.0-34.0); MCHC 32.7 G/DL (30.0-36.0); MCV 94.1 FL (86-99); MONOCYTE (%) 3.9 % (3-12); MONOCYTE COUNT 0.5 K/uL (0-0.8); NEUTROPHIL (%) 89.3 % (45-76); PLATELET COUNT 210 K/uL (156-360); RBC DIS.WIDTH-CV 15.6 % (11.8-14.6); RED BLOOD COUNT 4.75 M/uL (4.00-5.50); WHITE BLOOD COUNT 13.4 K/uL (4.1-10.2)
[2018-02-20 06:42] LABS: CHLORIDE 100 MEQ/L (99-109); CREATININE 1.3 MG/DL (0.6-1.3); GFR ESTIMATE (CALCULATED) 56 mL/min/ (58.99-99999); GLUCOSE 191 mg/dL (70-99); POTASSIUM 4.8 MEQ/L (3.7-5.4); SODIUM 144 MEQ/L (136-147); UREA NITROGEN (BUN) 37 mg/dL (9-23)
[2018-02-20 08:05] VITALS: BP 168/78
[2018-02-20 16:28] VITALS: BP 130/69
[2018-02-20 23:56] VITALS: BP 158/87
[2018-02-21 06:53] LABS: BASOPHIL (%) 0.2 % (0-1); EOSINOPHIL (%) 0 % (0-5); HEMATOCRIT 42.8 % (38.0-50.0); IMMATURE GRANULOCYTE (%) 1.1 % (0.0-0.7); LYMPHOCYTE COUNT 0.8 K/uL (1.0-2.8); MCH 30.4 PG (29.0-34.0); MCHC 32.7 G/DL (30.0-36.0); MONOCYTE (%) 3.5 % (3-12); MONOCYTE COUNT 0.4 K/uL (0-0.8); NEUTROPHIL (%) 87.2 % (45-76); NEUTROPHIL COUNT 9.1 K/uL (1.8-6.4); PLATELET COUNT 199 K/uL (156-360); RBC DIS.WIDTH-CV 15.7 % (11.8-14.6); RBC DIS.WIDTH-SD 53.6 % (39-53); WHITE BLOOD COUNT 10.4 K/uL (4.1-10.2)
[2018-02-21 07:30] LABS: CHLORIDE 101 MEQ/L (99-109); CREATININE 1.2 MG/DL (0.6-1.3); GFR ESTIMATE (CALCULATED) > 59 mL/min/ (58.99-99999); GLUCOSE 220 mg/dL (70-99); POTASSIUM 4.8 MEQ/L (3.7-5.4); SODIUM 139 MEQ/L (136-147); UREA NITROGEN (BUN) 33 mg/dL (9-23)
[2018-02-21 07:57] VITALS: BP 178/83
[2018-02-21] MEDS ORDERED: CYANOCOBAL1000 MCG/2 SC (11:17)
[2018-02-21] MEDS ORDERED: ELIQUIS5 MG PO ×2 (13:09→13:12)
[2018-02-21] MEDS ORDERED: DUONEB 2.5-0.5 M3 ML AEROSOL (15:05)
[2018-02-21 15:55] VITALS: BP 173/88
== END 2018-02-21 16:04 | disposition home health service (06) | DRG 300 ==
LOC: EME 14:08 → EDOF 15:46 → 5SOUTH 15:46 → ENRESERV 15:49 → 5SOUTH 17:17 → ENPENDDIS 02-16 10:45 → 5SOUTH 02-21 16:04
PROVIDERS: Hospitalist; Internal Medicine; Physician Assistant
DX: I82.431 Acute embolism and thrombosis of right popliteal vein (principal); I82.411 Acute embolism and thrombosis of right femoral vein; J44.1 Chronic obstructive pulmonary disease with (acute) exacerbation; I27.20 Pulmonary hypertension, unspecified; I12.9 Hypertensive chronic kidney disease with stage 1 through stage 4 chronic kidney disease, or unspecified chronic kidney disease; E11.22 Type 2 diabetes mellitus with diabetic chronic kidney disease; N18.9 Chronic kidney disease, unspecified; E53.8 Deficiency of other specified B group vitamins; I25.10 Atherosclerotic heart disease of native coronary artery without angina pectoris; E78.5 Hyperlipidemia, unspecified; K21.9 Gastro-esophageal reflux disease without esophagitis; D72.829 Elevated white blood cell count, unspecified; T38.0X5A Adverse effect of glucocorticoids and synthetic analogues, initial encounter; J98.11 Atelectasis; E66.9 Obesity, unspecified; Z68.32 Body mass index [BMI] 32.0-32.9, adult; H91.90 Unspecified hearing loss, unspecified ear; F41.9 Anxiety disorder, unspecified; F10.21 Alcohol dependence, in remission; Z91.14 Patient's other noncompliance with medication regimen; Z91.11 Patient's noncompliance with dietary regimen; Z87.891 Personal history of nicotine dependence; Z86.711 Personal history of pulmonary embolism; Z79.01 Long term (current) use of anticoagulants; Z99.81 Dependence on supplemental oxygen
CPT/HCPCS: 71275; 80048; 80053; 81003; 82607; 82948; 83880; 85025; 85027; 85610; 85730; 93005; 93306; 93971; 94640; 94799; 97530 GP; 99281; 99285; J1815; J2920; J3420; J7030; J7512